=== PATIENT | male | born 1965 | race Caucasian/White ===

== ENCOUNTER 2017-02-15 14:52 | Emergency (ER) | payer SELFPAY ==
[~2017-02-15] VITALS: Ht 175.3 cm; Wt 93.0 kg
[2017-02-15 16:17] VITALS: BP 141/92
[2017-02-15] MEDS ORDERED: KETOROLAC TROMETH 60MG/2ML VIAL IM ONE (16:30)
[2017-02-15] MEDS ORDERED: TETANUS-DIPTH-ACEL PERTUSSIS 0.5ML SYRG IM ONE (16:30)
== END 2017-02-15 17:42 | disposition home or self-care (01) ==
LOC: ER 14:52
DX: S20.212A Contusion of left front wall of thorax, initial encounter (principal); S60.211A Contusion of right wrist, initial encounter; J45.909 Unspecified asthma, uncomplicated; R42 Dizziness and giddiness; V43.52XA Car driver injured in collision with other type car in traffic accident, initial encounter; Y93.89 Activity, other specified; Y92.89 Other specified places as the place of occurrence of the external cause; Y99.8 Other external cause status
CPT/HCPCS: 70450; 71101; 73110; 90471; 90715; 96372; 99284; J1885